=== PATIENT | female | born 1995 | race Caucasian/White ===

== ENCOUNTER → 2017-06-14 | Outpatient (REF) | payer MEDICAID ==
[2017-06-15 10:01] LABS: CHLAMYDIA DNA AMPLIFICATION NEGATIVE (NEGATIVE); GC DNA AMPLIFICATION NEGATIVE (NEGATIVE)
== END ==
LOC: M SFHCWAGY 13:37
DX: Z12.4 Encounter for screening for malignant neoplasm of cervix (principal); Z11.3 Encounter for screening for infections with a predominantly sexual mode of transmission
CPT/HCPCS: G0123

== ENCOUNTER → 2018-01-29 | Outpatient (REF) | payer MEDICAID | LOC: M SFHCPLAZ 17:28 | DX: R35.0 Frequency of micturition (principal) ==